=== PATIENT | male | born 1945 | race Caucasian/White ===

== ENCOUNTER 2022-04-09 13:31 | Emergency (ER) | payer MEDICARE, OTHER ==
[2022-04-09 14:05] VITALS: BP 174/95
[2022-04-09] MEDS ORDERED: BUPIVACAINE 0.5% PF 10 ML VIAL SUBQ STA (14:39)
[2022-04-09] MEDS ORDERED: BUPIVACAINE 0.5% PF 30 ML VIAL ONE (14:48)
--- NOTE | 2022-04-09 15:35 | ED Physician Documentation ---
History of Present Illness - Stated complaint Stated Complaint: LEFT HAND LACERATION - Chief complaint Chief Complaint: Laceration - History obtained from History obtained from: Patient - History of Present Illness Timing: Today Pain level max: 7 Pain level now: 6 - Additonal information Additional information: 76-year-old male, right-handed, presents with an injury to the left thumb. He was removing a crab timber spotter from the boat when it slipped lacerating the left thumb. He states he is unable to bend the thumb. No numbness or tingling. Tetanus up-to-date. Nothing makes it better or worse. He has not on blood thinners. Review of Systems Constitutional: denies: Fever, Chills GI: denies: Vomiting, Diarrhea Skin: denies: Rash Musculoskeletal: denies: Neck pain, Back pain Neurologic: denies: Headache PD PAST MEDICAL HISTORY - Past Medical History Past Medical History: Yes Cardiovascular: Hypertension, High cholesterol - Past Surgical History Past Surgical History: No - Present Medications Home Medications: Ambulatory Orders Medication Instructions Recorded Confirmed HYDROcod/ACETAM 5/325 [Stafford 5/325] 1 - 2 ea PO Q6H PRN #14 tablet 04/09/22 cephALEXin [Keflex] 500 mg PO Q6H #40 cap 04/09/22 - Allergies Allergies/Adverse Reactions: Allergies Allergy/AdvReac Type Severity Reaction Status Date / Time No Known Drug Allergies Allergy Verified 04/09/22 13:50 - Social History Does the pt have substance abuse?: No - Family History Family history: reports: Non contributory - Immunizations Immunizations are current?: Yes Immunizations: TDAP current <10years PD ED PE NORMAL - Vitals Vital signs reviewed: Yes - General General: Alert and oriented X 3, No acute distress - HEENT HEENT: Moist mucous membranes - Neck Neck: Supple, no meningeal sign - Derm Derm: Warm and dry - Extremities Extremities: Other - Neuro Neuro: Alert and oriented X 3 - Psych Psych: Normal mood, Normal affect PD ED PE EXPANDED - Extremities YOEL UE/Hands Visual: 1 - laceration (2cm, linear, irregular, tendon complete laceration. NVI and brisk cap refill distal.) Results - Vitals Vitals: Vital Signs - 24 hr 04/09/22 13:50 Temperature 37.2 C Heart Rate 78 Respiratory 18 Rate Blood Pressure 174/95 H O2 Saturation 99 Oxygen O2 Source Room air Procedures - Laceration (location) L thumb Length in cm: 2 Wound type: Irregular, Into subcut fat, Clean Neurovascular status: Sensory intact, Motor intact, Vascular intact Tendon involvement: Tendon Injury (laceration of tendon) Anesthesia: Marcaine 0.5% (ring block) Wound preparation: Irrigated copiously NS, Wound explored, To the base Skin layer closure: Nylon, Interrupted, Size #-0 - enter number (3), Sutures - enter # (8) Other: Patient tolerated well, No complications, Neurovascular intact, Dressing applied, Tetanus UTD PD MEDICAL DECISION MAKING - ED course Complexity details: reviewed results, re-evaluated patient, considered d ifferential, d/w patient ED course: Patient with a significant left thumb laceration. Bleeding controlled. Ring block used and a tourniquet was used to repair the laceration. Unable to visualize the tendon, likely complete laceration. Fully unable to move the thumb. Neurovascularly intact and there is brisk cap refill distal to the laceration. Placed in a Velcro thumb spica. Minimal bleeding after repair. Discussed the case with [facility] in [place] as the patient is from [place]. They will contact him tomorrow. The importance of following up with a hand surgeon tomorrow was stressed to the patient. Patient counseled regarding checking the wound, ensuring that there is no infection or signs of vascular compromise. We will place on antibiotics and pain medication for home. Patient was counseled that it is vital to follow-up with a hand surgeon. Patient counseled regarding signs and symptoms for which I believe and urgent re-evaluation would be necessary. Patient with good understanding of and agreement to plan and is comfortable going home at this time This document was made in part using voice recognition software. While efforts are made to proofread this document, sound alike and grammatical errors may occur. Departure - Departure Disposition: 01 Home, Self Care Clinical Impression: Thumb laceration Qualifiers: Encounter type: initial encounter Damage to nail status: without damage Foreign body presence: without foreign body Laterality: left Qualified Code(s): S61.012A - Laceration without foreign body of left thumb without damage to nail, initial encounter Extensor tendon laceration of finger with open wound Qualifiers: Encounter type: initial encounter Qualified Code(s): S56.429A - Laceration of extensor muscle, fascia and tendon of unspecified finger at forearm level, initial encounter Condition: Good Instructions: ED Laceration Hand Follow-Up: KWAME ECHOLS MD [Physician No Access] - Prescriptions: cephALEXin [Keflex] 500 mg PO Q6H #40 cap HYDROcod/ACETAM 5/325 [Stafford 5/325] 1 - 2 ea PO Q6H PRN #14 tablet PRN Reason: Pain Comments: I spoke with Dr. Guerra, on-call for [facility] in [place]. He will have the office contact you tomorrow for an appointment. Keep the wound clean. Keep the splint in place. Take all antibiotics until gone. Return if you wor sen. Your prescriptions were sent to [facility] in [place] [facility] [address] [place], [place] [id number] I am prescribing a short course of narcotic pain medication for you. These are potentially dangerous and addictive medications that should be used carefully. These medications may constipate you. Take an fedn-bfn-sqbqqsb stool softener (docusate) twice daily with plenty of water while taking these medications. If you go 24 hours without a bowel movement, take whjn-rhj-vwrrjfj miralax, per package instructions. Do not drink or drive while taking these medications. If you received narcotic or sedating medications while in the emergency department, do not drive for 24 hours. Store this medication in a safe, secure place and out of reach of children. It is a violation of federal law to give or sell this medication to another person or to use in a manner other than prescribed. The ED will not refill narcotic prescriptions, including prescriptions lost or stolen. To dispose of unwanted medications: 1. [facility] at [address] in [place] has a medication drop box. They accept prescription medications (in pill form) Saturday through Saturday 9:00 a.m. to 5:00 p.m. 2. The [facility] [employer] accepts prescription medications (in pill form only) for disposal year round. Call for more information. 3. Contact the [facility] for the next [facility] sponsored prescription drug collection event. , [phone], or [phone]; Discharge Date/Time: 04/09/22 16:24
[2022-04-09] MEDS ORDERED: cephALEXin 250 MG CAPSULE PO STA (15:49)
== END 2022-04-09 16:24 | disposition home or self-care (01) ==
LOC: ED 13:31
DX: S61.012A Laceration without foreign body of left thumb without damage to nail, initial encounter (principal); W31.89XA Contact with other specified machinery, initial encounter; Y93.89 Activity, other specified; Y92.814 Boat as the place of occurrence of the external cause
CPT/HCPCS: 12001; 99282; A9270